=== PATIENT | male | born 1940 | race Caucasian/White ===

== ENCOUNTER 2018-04-24 07:20 | Day surgery (SDC) | payer MEDICARE, OTHER ==
[2018-04-24] MEDS ORDERED: BUPIVACAINE 0.5% PF 30 ML VIAL ONE (07:48)
[2018-04-24] MEDS ORDERED: LACTATED RINGERS 1,000 ML IV ONE ×4 (08:07→12:41)
--- NOTE | 2018-04-24 08:31 | ANESTHESIA ---
Pre-Anesthesia VS, & Labs - Diagnosis Right IHR - Procedure R IHR Vital Signs: Temp Pulse Resp BP Pulse Ox 36.3 C L 16 154/84 H 100 04/24/18 07:53 04/24/18 07:53 04/24/18 07:53 04/24/18 07:53 Height 5 ft 9 in Weight (kg) 66.5 kg - NPO >8 hours - Lab Results Lab results reviewed: Yes Home Medications and Allergies Home Medications: Ambulatory Orders Medication Instructions Recorded Confirmed No Known Home Medications [No 04/18/18 04/18/18 Known Home Medications] Allergies/Adverse Reactions: Allergies Allergy/AdvReac Type Severity Reaction Status Date / Time No Known Drug Allergies Allergy Verified 04/18/18 11:27 Anes History & Medical History - Anesthetic History Anesthesia Complications: reports: No previous complications - Medical History Cardiovascular: reports: Other (Bradycardia 29) Pulmonary: reports: None. denies: Asthma Gastrointestinal: reports: None, Other Urinary: reports: None Neuro: reports: None Musculoskeletal: reports: None Endocrine/Autoimmune: reports: None Blood Disorders: reports: None Skin: reports: None Smoking Status: Never smoker Psychosocial: reports: No issues indicated - Surgical History Eyes Ears Nose Throat (EENT): Tonsil/Adenoidectomy Exam General: Alert, Oriented x3, Cooperative Dental: WNL Mouth Openin Fingerbreadth Neck Mobility: Normal Mallampati classification: I Thyromental Distance: 4-6 cm Respiratory: Lungs clear Cardiovascular: Regular rate Abdomen: Normal bowel sounds Extremities: No clubbing Neurological: Normal gait Mental/Cognitive Status: Alert/Oriented X3 Cognitive Status: Within normal limits Plan Anesthesia Type: General Consent for Procedure(s) Verified and Reviewed: Yes Code Status: Attempt Resuscitation ASA classification: 2-Mild systemic disease Is this case an emergency?: No
[2018-04-24] MEDS ORDERED: PROPOFOL 200 MG/20 ML VIAL IVP ONE (09:00)
[2018-04-24] MEDS ORDERED: GLYCOPYRROLATE 1 MG/5 ML VIAL IVP ONE (09:00)
[2018-04-24] MEDS ORDERED: LIDOCAINE-MPF 2% 5 ML VIAL IM ONE (09:00)
[2018-04-24] MEDS ORDERED: fentaNYL 100 MCG/2 ML VIAL IVP ONE (09:00)
[2018-04-24] MEDS ORDERED: ONDANSETRON 4 MG/2 ML VIAL IVP ONE (09:00)
[2018-04-24] MEDS ORDERED: DEXAMETHASONE 4 MG/ML VIAL IVP ONE (09:00)
[2018-04-24] MEDS ORDERED: MIDAZOLAM 2 MG/2 ML VIAL IVP ONE (09:00)
[2018-04-24] MEDS ORDERED: BUPIVACAINE 0.5% PF 30 ML VIAL INFIL ONE ×2 (09:19)
--- NOTE | 2018-04-24 10:21 | OPERATIVE REPORT ---
Operative Report - General Procedure Date: 04/24/18 Planned Procedure: Right inguinal herniorrhaphy Pre-Op Diagnosis: Right inguinal hernia Procedure Performed: Right indirect inguinal herniorrhaphy with mesh and right hydrocelectomy Post Op Diagnosis: Right indirect inguinal hernia and right hydrocele - Procedure Note Primary Surgeon: Zackary Burrows MD Anesthesia Provider: Ricardo Jordan CRNA Anesthesia Technique: General LMA, Local (30 mL of half percent Marcaine) IV Fluids (mL): 1,000 Estimated Blood Loss (mL): 5 Complications: None. - Other Other Information/Narrative: OPERATIVE DESCRIPTION/REPORT: After verbal and written informed consent was obtained detailing the risks of infection, bleeding requiring transfusion with its risks, nerve injury, and , and after I met with the patient confirming the surgery and the site of the surgery and after initialing the site of the surgery with a surgical marker , the patient was brought to the operative suite and placed supine on the operating table. Great care was taken to avoid pressure points to prevent pressure necrosis or nerve injury. Monitoring devices were applied along with TEDs and pneumatic compressive stockings (to prevent DVT). The patient received preoperative antibiotics for surgical prophylaxis. Ricardo Jordan CRNA sedated and anesthetized the patient for the entire procedure. The patient was prepped and draped in the usual sterile manner. With the patient draped my initials were clearly visible. A "time in" then confirmed that the patient was identified with 3 identifiers (name, date and medical record number), the history and physical was in the chart, the signed consent confirming the procedure was in the chart, the patient was in the correct position, the aforementioned prophylactic measures were in place or given, we had the correct personnel and equipment to complete the procedure and that anesthesia, surgery and nursing were given an opportunity to express any concerns. With the agreement of everyone in the room, we proceeded with the operation. A standard inguinal incision was made and dissection was carried down to the external oblique aponeurosis using a combination of Metzenbaum scissors and Bovie electrocautery. The external oblique aponeurosis was cleared of overlying adherent tissue, and the external ring was delineated. The external oblique was the incised with a scalpel and this incision was carried out to the external ring using Metzenbaum scissors. Having exposed the inguinal canal, the cord structures were from the canal using blunt dissection, and a [place] drain was placed around the cord structures at the level of the pubic tubercle. This Guy drain was then used to retract the cord structures as needed. Adherent cremasteric muscle was dissected free from the cord using Bovie electrocautery. The cord was then explored using a combination of sharp and blunt dissection, and the sac was found anteromedially to the cord structures. The sac was quite large and scarred to the cord contents. The sac descended down into the right testicle. As the right testicle was brought up into the operative field and a small hydrocele is noted. This was drained and the sac was excised using serial application of Bovie electrocautery. The sac was dissected free from the cord structures using a combination of blunt dissection and Bovie electrocautery. Once preperitoneal fat was encountered, the dissection stopped and the sac was high ligated with a 2-0 Vicryl, transected, the stump cauterized and allowed to retract back into the abdominal cavity and a large Bard Perfix plug (Ref# [id number], Lot#[id number], use date 2022-11-15) inserted into the internal ring. The plug was secured to the internal ring by interrupted 2-0 PDS sutures. The Bard Perfix enlay patch was then placed on the floor of the inguinal canal and secured in place using interrupted 0 PDS sutures to the conjoined tendon superiorly, pubic tubercle medially, and shelving edge inferiorly. By reinforcing the floor with the enlay patch, a new internal ring was thus formed. The [place] drain was removed. The wound was then irrigated using sterile saline, and hemostasis was obtained using Bovie electrocautery. The incision in the external oblique was approximated using a 3-0 Vicryl in a running fashion , thus reforming the external ring. The fascia and skin was then injected with the 1/2% marcaine for skilled nursing pain control. The skin incision was approximated with 4-0 Monocryl in a subcuticular fashion. The skin was prepped with benzoin and steristrips were applied. At this point a time out was performed that confirmed that all the counts were correct, the procedure that was performed, the blood loss, the IV fluids administered, and the patients condition. A dressing was then applied. Gentle downward traction ensured that the testes were well seated in the scrotum. Having tolerated the procedure well , the patient was taken to short stay in good and stable condition.
[2018-04-24 12:51] VITALS: BP 133/78
== END 2018-04-24 07:21 | disposition home or self-care (01) ==
LOC: SDS 07:20
PROVIDERS: ATTEND Surgery
PROC: 0VBF0ZZ Excision of Right Spermatic Cord, Open Approach (ICD-10-PCS; 2018-04-24)
PROC: 0YU50JZ Supplement Right Inguinal Region with Synthetic Substitute, Open Approach (ICD-10-PCS; principal; 2018-04-24 08:30)
DX: K40.90 Unilateral inguinal hernia, without obstruction or gangrene, not specified as recurrent (principal); R00.1 Bradycardia, unspecified; Z86.19 Personal history of other infectious and parasitic diseases
CPT/HCPCS: 49505; 93005; C1781; J7120

== ENCOUNTER 2024-02-04 15:37 | Observation (INO) | payer MEDICARE, OTHER ==
--- NOTE | 2024-02-04 16:14 | ED Physician Documentation ---
PD HPI CHEST PAIN - Stated complaint Stated Complaint: CHEST TIGHTNESS - Chief complaint Chief Complaint: Cardiac - Additional information Additional information: 83-year-old male no past medical history does not take any medications for anyt charity presents emergency department for what he describes as an episode of chest tightness that occurred in the middle the night. Since then he feels better his symptoms have improved but he says that he does get these occasional chest tightness symptoms. No recent exertional exercise no recent illnesses. Patient does report that he has chronic lightheadedness that has been going on for years that is still present. PD PAST MEDICAL HISTORY - Past Medical History Past Medical History: No Cardiovascular: Other Respiratory: None Neuro: None Endocrine/Autoimmune: None GI: None, Other : None Musculoskeletal: None Derm: None - Past Surgical History Past Surgical History: Yes HEENT: Tonsil/Adenoidectomy - Present Medications Home Medications: Ambulatory Orders Medication Instructions Recorded Confirmed No Known Home Medications 04/18/18 02/04/24 - Allergies Allergies/Adverse Reactions: Allergies Allergy/AdvReac Type Severity Reaction Status Date / Time No Known Drug Allergies Allergy Verified 02/04/24 16:01 - Social History Does the pt smoke?: No Smoking Status: Never smoker Does the pt drink ETOH?: No Does the pt have substance abuse?: No - Immunizations Immunizations are current?: Yes - POLST Patient has POLST: No PD ED PE NORMAL - Vitals Vital signs reviewed: Yes - General General: Alert and oriented X 3, No acute distress, Well developed/nourished - HEENT HEENT: Atraumatic - Neck Neck: Supple, no meningeal sign - Cardiac Cardiac: No murmur, Other (Irregularly irregular) - Respiratory Respiratory: No respiratory distress, Clear bilaterally - Abdomen Abdomen: Normal bowel sounds, Soft, Non tender, No organomegaly - Back Back: No CVA TTP, No spinal TTP - Derm Derm: Normal color, Warm and dry, No rash - Extremities Extremities: No deformity, No edema, No calf tenderness / cord - Neuro Neuro: Alert and oriented X 3, regulatory technician 2-12 intact, No motor deficit, No sensory deficit, Normal speech Results - Vitals Vitals: Vital Signs - 24 hr 02/04/24 02/04/24 02/04/24 15:57 16:12 17:30 Temperature 36.0 C L Heart Rate 60 112 H 102 H Respiratory 20 22 Rate Blood Pressure 125/102 H 138/112 H 109/92 H O2 Saturation 99 98 02/04/24 02/04/24 02/04/24 17:40 17:45 17:50 Temperature Heart Rate 103 H 96 90 Respiratory Rate Blood Pressure 133/96 H 123/91 H 125/89 H O2 Saturation 02/04/24 02/04/24 02/04/24 18:00 18:15 18:30 Temperature Heart Rate 90 91 93 Respiratory Rate Blood Pressure 125/89 H 128/104 H 106/54 L O2 Saturation 02/04/24 02/04/24 02/04/24 18:45 18:55 19:00 Temperature Heart Rate 96 99 94 Respiratory Rate Blood Pressure 124/92 H 129/111 H 117/88 H O2 Saturation 02/04/24 02/04/24 02/04/24 19:05 19:15 19:20 Temperature Heart Rate 94 92 91 Respiratory 17 Rate Blood Pressure 130/96 H 112/87 H 124/109 H O2 Saturation 97 02/04/24 02/04/24 02/04/24 19:25 19:35 19:45 Temperature Heart Rate 95 92 98 Respiratory 18 14 25 H Rate Blood Pressure 126/98 H 114/92 H 115/91 H O2 Saturation 98 95 99 02/04/24 02/04/24 02/04/24 20:30 20:40 20:45 Temperature Heart Rate 99 81 95 Respiratory 19 Rate Blood Pressure 109/88 H 114/94 H O2 Saturation 98 02/04/24 02/04/24 02/04/24 20:50 21:00 21:05 Temperature Heart Rate 95 93 90 Respiratory 18 18 Rate Blood Pressure 129/80 114/99 H 111/96 H O2 Saturation 99 98 02/04/24 02/04/24 02/04/24 21:25 21:30 21:45 Temperature Heart Rate 86 81 82 Respiratory 19 19 Rate Blood Pressure 116/92 H 108/88 H 125/84 H O2 Saturation 97 99 02/04/24 02/04/24 02/04/24 22:00 22:30 23:00 Temperature Heart Rate 86 85 83 Respiratory 20 20 Rate Blood Pressure 112/75 113/71 O2 Saturation 99 98 Oxygen O2 Source Room air - EKG (time done) 1556 EKG releavant findings:: EKG personally interpreted by author of this note. Relevant findings are: Rate: Rate (enter#) (108) Rhythm: Atrial fibrillation [place]: LAD QRS: Normal Ischemia: Normal ST segments Computer interpretation: Agree with computer - Labs Labs: Laboratory Tests 02/04/24 02/04/24 02/04/24 16:10 16:10 16:10 WBC 6.9 RBC 4.08 L Hgb 13.9 L Hct 42.0 MCV 102.9 H MCH 34.1 H MCHC 33.1 RDW 12.9 Plt Count 166 MPV 8.8 Neut # (Auto) 4.9 Lymph # (Auto) 1.0 L [place] # (Auto) 1.0 Eos # (Auto) 0.0 Baso # (Auto) 0.0 Absolute Nucleated RBC 0.00 Nucleated RBC % 0.0 PT INR D-Dimer Sodium 139 Potassium 4.0 Chloride 104 Carbon Dioxide 29 Anion Gap 6.0 BUN 19 Creatinine 0.9 Estimated GFR (MDRD) 80 L Glucose 131 H Calcium 9.4 Total Bilirubin 1.2 H AST 22 ALT 22 Alkaline Phosphatase 40 L Troponin I High Sens 7.4 Total Protein 6.6 Albumin 4.2 Globulin 2.4 Albumin/Globulin Ratio 1.8 Lipase 21 TSH 3.09 02/04/24 16:10 WBC RBC Hgb Hct MCV MCH MCHC RDW Plt Count MPV Neut # (Auto) Lymph # (Auto) [place] # (Auto) Eos # (Auto) Baso # (Auto) Absolute Nucleated RBC Nucleated RBC % PT 13.4 H INR 1.2 D-Dimer 419.8 H Sodium Potassium Chloride Carbon Dioxide Anion Gap BUN Creatinine Estimated GFR (MDRD) Glucose Calcium Total Bilirubin AST ALT Alkaline Phosphatase Troponin I High Sens Total Protein Albumin Globulin Albumin/Globulin Ratio Lipase TSH - Rads (name of study) Chest x-ray Relevant Findings:: Final report received, EMP independent interpretation of test, Other (No acute cardiopulmonary abnormalities) CT PE Relevant Findings:: Final report received, EMP independent interpretation of test, Other (No pulmonary embolus, bibasilar atelectasis no cardiopulmonary abnormalities) PD Medical Decision Making - ED course ED course: 83-year-old male presents emergency department for chest tightness. EKG upon arrival reveals that he is in new onset A-fib. Patient says that he has never been diagnosed with A-fib before he is unsure if he had any EKGs within the last couple years but says that he has been struggling with dizziness now for years and unsure if this is been because of A-fib or not. Originally we talked about possibly doing a cardioversion for the patient but he cannot confidently say that the chest tightness that he was experiencing last night was the onset of the A-fib and so I do not believe that cardioversion is the safest option for the patient. Labs are complete for further evaluation no leukocytosis minimally suppressed hemoglobin at 13.9. PT is 13.4 INR is within normal limits at 1.2 D- dimer was elevated at 4.19. Electrolytes were within normal limits as well as normal TSH. Normal kidney function as well. We attempted to try and get his heart rate controlled with 5 mg of IV metoprolol x 3 which unfortunately did not improve his heart rate so we went ahead and started him on diltiazem drip which significantly improved his heart rate. He remains in A-fib. I believe that patient would benefit from hospitalization for rate control given his improvement on the diltiazem drip and possible expedited echocardiogram tomorrow while inpatient. I spoke with hospitalist Dr. Foster who is graciously agreed to admit the patient for hospitalization and further workup for patient's new onset A-fib. Departure - Departure Disposition: 66 [facility] DC/[facility] Clinical Impression: New onset a-fib
[2024-02-04 16:16] LABS: BASOPHILS % (AUTO) 0.3 %; EOSINOPHILS % (AUTO) 0.1 %; HGB - HEMOGLOBIN 13.9 g/dL (14.0-18.0); LYMPHOCYTES % (AUTO) 14.6 %; MEAN CORPUSCULAR HEMOGLOBIN 34.1 pg (27.0-31.0); MEAN CORPUSCULAR HGB CONC 33.1 g/dL (32.0-36.0); MEAN CORPUSCULAR VOLUME 102.9 fL (80.0-94.0); MEAN PLATELET VOLUME 8.8 fL (7.4-11.4); MONOCYTES % (AUTO) 14.9 %; NEUTROPHILS # (AUTO) 4.9 10^3/uL (1.5-6.6); NEUTROPHILS % (AUTO) 70.1 %; PLT - PLATELET COUNT 166 10^3/uL (130-450); RED BLOOD COUNT 4.08 10^6/uL (4.70-6.10); RED CELL DISTRIBUTION WIDTH 12.9 % (12.0-15.0); WHITE BLOOD COUNT 6.9 x10^3/uL (4.8-10.8)
--- NOTE | 2024-02-04 16:35 | XRAY Report ---
PROCEDURE: Chest 1V INDICATIONS: Chest pain TECHNIQUE: One view of the chest was acquired. COMPARISON: Correlation is made with report only from prior chest radiograph dated 08/17/2010 FINDINGS: Surgical changes and devices: None. Lungs and pleura: An incomplete inspiratory result is noted, with low lung volumes and crowding of t he vascular markings. No focal infiltrates are seen. No large pneumothorax or large pleural effusion can be seen. Mediastinum: Mediastinal contours appear normal. Heart size is normal. Calcification is seen of th e aortic arch. Bones and chest wall: No suspicious bony lesions. Age-appropriate degenerative changes are seen. O verlying soft tissues appear unremarkable. IMPRESSION: Limited portable chest examination, without an acute abnormality identified. Reviewed by: Steve Hyatt MD on 02/04/2024 3:34 PM AKAMOL Approved by: Steve Hyatt MD on 02/04/2024 3:34 PM [place]AR[place] Station ID: [id number]
[2024-02-04 16:38] LABS: TROPONIN I HIGH SENSITIVITY 7.4 ng/L (2.3-19.7)
[2024-02-04 17:07] LABS: ALBUMIN 4.2 g/dL (3.2-5.5); ALBUMIN/GLOBULIN RATIO 1.8 (1.0-2.2); BILIRUBIN,TOTAL 1.2 mg/dL (0.2-1.0); CALCIUM 9.4 mg/dL (8.5-10.3); CREATININE 0.9 mg/dL (0.6-1.3); TOTAL PROTEIN 6.6 g/dL (6.4-8.9)
[2024-02-04] MEDS: METOPROLOL 5 MG/5 ML VIAL IVP STA ×4 (17:33→19:49)
[2024-02-04 17:34] LABS: D-DIMER 419.8 ng/mL (200.0-255.0)
[2024-02-04] MEDS: SODIUM CHLORIDE 0.9% 1,000 ML IV ONE (17:34)
[2024-02-04 17:39] LABS: INR 1.2 (0.8-1.2); PT - PROTHROMBIN TIME 13.4 secs (9.9-12.6)
[2024-02-04] MEDS ORDERED: diltiaZEM INJ 5 MG/ML VIAL ONE (20:24)
[2024-02-04] MEDS: diltiaZEM INJ 125 MG in DEXTROSE 5% 100 ML IV STA (20:32)
[2024-02-04] MEDS ORDERED: iohexoL-300 100 ML VIAL ONE (21:29)
[2024-02-04] MEDS: iohexoL-300 100 ML VIAL IVP ONE (22:15)
--- NOTE | 2024-02-04 22:49 | CT Report ---
PROCEDURE: Angio Chest INDICATIONS: CT angio chest CONTRAST: 100 ML OMNI 300 TECHNIQUE: After the administration of intravenous contrast, 2 mm axial images were acquired from the pulmonary apices to the posterior costophrenic angles during the arterial phase. In addition, 1 mm lung kernel and 5 mm soft tissue kernel reconstructions were performed. 3-dimensional coronal oblique maximum int ensity projection (MIP) reformats, 8 mm axial MIP, and 5 mm coronal and sagittal MPR reformats were t hen performed through the thorax. For radiation dose reduction, the following was used: automated exp osure control, adjustment of mA and/or kV according to patient size. COMPARISON: Chest radiograph from earlier same day. FINDINGS: Image quality: Diagnostic. Large vessels: No filling defects within the opacified pulmonary arteries, accounting for motion and contrast timing. No evidence of acute aortic syndrome or aortic aneurysm. Lungs and pleura: Bibasilar atelectasis. No consolidation. No pleural effusions. No pneumothorax. No suspicious pulmonary nodules which require follow up. Mediastinum: Heart size is normal. No pericardial effusion. No large vessel abnormality. No mediastin al adenopathy by size criteria. Chest wall and lower neck: Thyroid is unremarkable. No axillary or supraclavicular adenopathy by size . Bones: No aggressive osseous abnormality. Multilevel spondylosis of the imaged spine. No acute compre ssion fracture. Upper Abdomen: Unremarkable. IMPRESSION: No pulmonary embolus. Bibasilar atelectasis. No acute cardiopulmonary abnormalities. Reviewed by: Anthony Polanco MD on 02/04/2024 10:47 PM PDT Approved by: Anthony Polanco MD on 02/04/2024 10:47 PM PDT Station ID: [id number]
[2024-02-04] MEDS ORDERED: SODIUM CHLORIDE FLUSH 0.9% 10 ML SYRINGE IVP PRN (23:17)
[2024-02-04] MEDS ORDERED: ACETAMINOPHEN 325 MG TABLET PO PRN (23:17)
[2024-02-04] MEDS ORDERED: ONDANSETRON 4 MG/2 ML VIAL IVP PRN (23:17)
--- NOTE | 2024-02-04 23:29 | HISTORY & PHYSICAL EXAMINATION ---
Chief Complaint - Chief Complaint Chief Complaint: chest tightness History of Present Illness - Admitted From Admitted From:: Home - History Obtained From Records Reviewed: Yes History obtained from: Patient, ER staff and review of records Exam Limitations: None - History of Present Illness HPI Comment/Other: 83-year-old male no past medical history does not take any medications for anything presents emergency department for what he describes as an episode of chest tightness that occurred in the middle the night. Since then he feels better his symptoms have improved but he says that he does get these occasional chest tightness symptoms. No recent exertional exercise no recent illnesses. Patient does report that he has chronic lightheadedness that has been going on for years that is still present. Patient has had hx of right inguinal hernia repair in 2018, hax hx of hepatitis and bowel disorder. He states he is healthy for his age. I informed him prior to our visit that I am based in [place] and this is a telem edicine visit and he gives permission to continue with the encounter. Patient is CP free at this time, heart rate is improved, based on his history his A fib is new onset, he has not felt this palpitations in past. 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 Lately he has had episodes of feeling tired and fatigue, which he attributed to old age, could likely be from paroxysmal a fib He has no chest pain at this time only episode of cp was last night when he e xperienced his heart racing and palpitations.I have discussed with him that we will be starting him on amiodarone to maximize his chance of going back to sinus rhythm as well as start him on blood thinners, he has had no hx of bleeding. Also we will check an echocardiogram in am History - Past Medical History Cardiovascular: reports: Other Respiratory: reports: None Neuro: reports: None Endocrine/Autoimmune: reports: None GI: reports: None, Hepatitis, Other : reports: None, Other (right inguinal hernia repair ) Musculoskeletal: reports: None Derm: reports: None MRSA Hx?: No - Past Surgical History HEENT: reports: Tonsil/Adenoidectomy - POLST Patient has POLST: No Meds/Allgy - Home Medications Home Medications: Ambulatory Orders Medication Instructions Recorded Confirmed No Known Home Medications 04/18/18 02/04/24 - Allergies Allergies/Adverse Reactions: Allergies Allergy/AdvReac Type Severity Reaction Status Date / Time No Known Drug Allergies Allergy Verified 02/04/24 16:01 Review of Systems - Cardiovascular Cariovascular: reports: Irregular heart rate, Palpitations, Chest pain Exam - Vital Signs Vital Signs: Vital Signs x48h Temp Pulse Resp BP Pulse Ox 02/04/24 22:30 85 20 112/75 99 02/04/24 22:00 86 02/04/24 21:45 82 19 125/84 H 99 02/04/24 21:30 81 108/88 H 02/04/24 21:25 86 19 116/92 H 97 02/04/24 21:05 90 111/96 H 02/04/24 21:00 93 18 114/99 H 98 02/04/24 20:50 95 18 129/80 99 02/04/24 20:45 95 114/94 H 02/04/24 20:40 81 19 109/88 H 98 02/04/24 20:30 99 02/04/24 19:45 98 25 H 115/91 H 99 02/04/24 19:35 92 14 114/92 H 95 02/04/24 19:25 95 18 126/98 H 98 02/04/24 19:20 91 124/109 H 02/04/24 19:15 92 17 112/87 H 97 02/04/24 19:05 94 130/96 H 02/04/24 19:00 94 117/88 H 02/04/24 18:55 99 129/111 H 02/04/24 18:45 96 124/92 H 02/04/24 18:30 93 106/54 L 02/04/24 18:15 91 128/104 H 02/04/24 18:00 90 125/89 H 02/04/24 17:50 90 125/89 H 02/04/24 17:45 96 123/91 H 02/04/24 17:40 103 H 133/96 H 02/04/24 17:30 102 H 109/92 H 02/04/24 16:12 112 H 22 138/112 H 98 02/04/24 15:57 36.0 C L 60 20 125/102 H 99 - Physical Exam General Appearance: positive: No acute distress Eyes Bilateral: positive: Normal inspection ENT: positive: Pharynx nml, No signs of dehydration Neck: positive: Nml inspection Cardiovascular: positive: Irregularly irregular Abdomen: positive: Non-tender, No organomegaly, Nml bowel sounds Back: positive: Nml inspection, CVA tenderness (R) Skin: positive: Color nml Extremities: positive: Non-tender, Full ROM Neurologic/Psychiatric: positive: Oriented x3, CN's nml (2-12) Sepsis Event Note (H) - Evaluation Current Stage of Sepsis: Ruled out Conclusion/Plan - Problem List (1) New onset a-fib Conclusion/Plan: 1. New on set of A fib with RVR 2. Chest tightness 3.Hx of right inguinal hernia repair 4. Mild abnormal LFT Recommendations Admit to icu Gentle hydration Start on Eliquis 5 mg bid Metoprolol 25 mg po bid Check Echo Amiodarone drip I am anticipating likely patient will convert to SR once he gets amiodarone Full code TOTAL TIME SPENT 55 MINS - Lab Results Fish Bones: 02/04/24 16:10 02/04/24 16:10 - Diagnostic Imaging Results Diagnostic Imaging Results: positive: Final report reviewed - EKG Results EKG Interpreted Independently: No EKG Findings: EKG not available for review to me, ER staff states they have reviewed the EKG and shows A fib
[2024-02-05] MEDS ORDERED: AMIODARONE 150 MG/100 ML 100 ML IV ONE (00:39)
[2024-02-05] MEDS: AMIODARONE 150 MG/3 ML VIAL IVP STA (00:48)
[2024-02-05] MEDS: SODIUM CHLORIDE 0.9% 1,000 ML IV SCH (00:49)
[2024-02-05] MEDS: SODIUM CHLORIDE FLUSH 0.9% 10 ML SYRINGE IVP SCH (00:49)
[2024-02-05] MEDS: METOPROLOL TARTRATE 50 MG TABLET PO SCH (00:56)
[2024-02-05] MEDS: APIXABAN 5 MG TABLET PO SCH (00:56)
[2024-02-05] MEDS: AMIODARONE 360 MG/200 ML 200 ML IV ONE (01:03)
[2024-02-05 05:31] LABS: BASOPHILS % (AUTO) 0.5 %; EOSINOPHILS # (AUTO) 0.1 10^3/uL (0.0-0.7); EOSINOPHILS % (AUTO) 1.3 %; HCT - HEMATOCRIT 38.1 % (42.0-52.0); HGB - HEMOGLOBIN 12.5 g/dL (14.0-18.0); LYMPHOCYTES % (AUTO) 32.4 %; MEAN CORPUSCULAR HEMOGLOBIN 33.5 pg (27.0-31.0); MEAN CORPUSCULAR HGB CONC 32.8 g/dL (32.0-36.0); MEAN CORPUSCULAR VOLUME 102.1 fL (80.0-94.0); MEAN PLATELET VOLUME 9.6 fL (7.4-11.4); MONOCYTES # (AUTO) 0.9 10^3/uL (0.0-1.0); MONOCYTES % (AUTO) 15.4 %; NEUTROPHILS # (AUTO) 3.1 10^3/uL (1.5-6.6); NEUTROPHILS % (AUTO) 50.2 %; PLT - PLATELET COUNT 162 10^3/uL (130-450); RED BLOOD COUNT 3.73 10^6/uL (4.70-6.10); WHITE BLOOD COUNT 6.1 x10^3/uL (4.8-10.8)
[2024-02-05 05:39] LABS: MAGNESIUM 1.8 mg/dL (1.7-2.3)
[2024-02-05 05:44] LABS: ALBUMIN 3.6 g/dL (3.2-5.5); ALBUMIN/GLOBULIN RATIO 1.6 (1.0-2.2); BILIRUBIN,TOTAL 1.2 mg/dL (0.2-1.0); CALCIUM 8.9 mg/dL (8.5-10.3); CREATININE 0.8 mg/dL (0.6-1.3); POTASSIUM 4.1 mmol/L (3.5-4.5); TOTAL PROTEIN 5.8 g/dL (6.4-8.9)
[2024-02-05] MEDS: AMIODARONE 360 MG/200 ML 200 ML IV SCH (07:07)
[2024-02-05] MEDS: AMIODARONE 200 MG TABLET PO SCH (10:59)
--- NOTE | 2024-02-05 12:41 | PHARMACY PROGRESS NOTE ---
- Best Possible Medication History Admit Date and Time: 02/04/24 2424 Processed by: Pharmacy Medications reviewed in ED?: Yes Medication History completed: Yes Patient Interview: Completed Secondary Source(s): Insurance records As the person ultimately responsible for medication therapy, providers are able to order a medication from an existing home medication list in [facility] via the "Reconcile Routine" prior to Confirmation of that medication by support architect. Such practice is discouraged except when the physician, in their clinical judgment, deems that a medical need exists for a medication without regard to previous use.
--- NOTE | 2024-02-05 14:37 | Discharge Plan ---
Discharge Plan Problem Reviewed?: Yes Disposition: Home, Self Care Condition: Stable Prescriptions: Apixaban [Eliquis] 5 mg PO BID 90 Days #180 tab Metoprolol Tartrate [Lopressor] 25 mg PO BID #90 tab Diet: Regular Activity Restrictions: Activity as Tolerated Shower Restrictions: No Driving Restrictions: Yes (Please try to minimize driving until you're able to follow up with a Dr ) Instruction Topics: Atrial Fibrillation Dc Additional Instructions or Follow Up instructions: Zackary, as we discussed, when you came to the hospital you had an irregular heart rhythm called atrial fibrillation. At the time that I discharged you, your heart was still in atrial fibrillation. As we discussed, this can be something that you can live with, and live a relatively happy and healthy life, however it can also come with some potential complications. The 2 most important ones are the increased risk of stroke associated with atrial fibrillation. The second 1 would be when atrial fibrillation leads to a very fast heart rate which is not sustainable. For this reason, I am starting you on 2 different medications 1 called metoprolol which will help reduce your heart rate and also affect your blood pressure. The other 1 is called Eliquis, which is a blood thinner that will help reduce your chances of the stroke. As we discussed, one of my concerns, is that we need to monitor your heart rate and blood pressure after starting a new medication like metoprolol. Because if your heart rate gets too high or too low it can cause problems for you. It can also lower your blood pressure, and if your blood pressure is low or too much, that can cause lightheadedness or weakness. In order to avoid these complications, I would like you to follow-up with a primary care physician or other healthcare provider, establish care with a mine engineer if possible. In the meantime, please use your home blood pressure monitor to check your blood pressure and heart rate daily. To make sure your blood pressure is in a safe range, I would like the systolic, or the top number, to fall somewhere between 100-170. I would like your heart rate to be somewhere between 55 and 100. If you find that your numbers are consistently out of this range, you may need to get medical advice from an urgent care or some other provider until you can be established with a PCP. On the other hand, if you start to feel unwell, please do not wait and seek medical attention more immediately. Regarding the blood thinner, called Eliquis, this is a generally safe medication that is well-tolerated. However, please do keep in mind that we will increase the chances of bleeding episodes. For example, you may find bloody noses more often than usual or it may take longer to stop a bloody nose than it used to. Simple abrasions from a fall or paper cut may also bleed for longer than usual. But it should still be relatively manageable by holding pressure for a little longer. It can also be associated with what is called a GI bleed, which means bleeding from the gastrointestinal tract. If you notice that you have dark- colored stool or red, maroon or iron colored stool, please seek medical advice. Lastly, remember that an echocardiogram was performed while you were here in the hospital. Unfortunately, at the time of your discharge, I do not have access to a report or interpretation. However, when she establish with a PCP, have their office request medical records from this hospital admission and our medical records office should be able to send them to your new PCP for review. No Smoking: If you smoke, Please STOP! Call for help.
--- NOTE | 2024-02-05 14:54 | DISCHARGE SUMMARY ---
Discharge Summary Admit Date: 02/04/24 Discharge Date: 02/05/24 Discharging Provider: Ismael Sarah MD Primary Care Provider: None Code Status: Attempt Resuscitation Condition at Discharge: Stable Discharge Disposition: 01 Home, Self Care - DIAGNOSES Admission Diagnoses: Atrial Fibrillation - New Onset Discharge Diagnoses with Status of Each Condition: Atrial Fibrillation - Stable - HPI History of Present Illness: 83-year-old male no past medical history does not take any medications for anything presents emergency department for what he describes as an episode of chest tightness that occurred in the middle the night. Since then he feels better his symptoms have improved but he says that he does get these occasional chest tightness symptoms. No recent exertional exercise no recent illnesses. Patient does report that he has chronic lightheadedness that has been going on for years that is still present. Patient has had hx of right inguinal hernia repair in 2018, hax hx of hepatitis and bowel disorder. He states he is healthy for his age. I informed him prior to our visit that I am based in [place] and this is a telemedicine visit and he gives permission to continue with the encounter. Patient is CP free at this time, heart rate is improved, based on his history his A fib is new onset, he has not felt this palpitations in past. 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 Lately he has had episodes of feeling tired and fatigue, which he attributed to old age, could likely be from paroxysmal a fib He has no chest pain at this time only episode of cp was last night when he experienced his heart racing and palpitations.I have discussed with him that we will be starting him on amiodarone to maximize his chance of going back to sinus rhythm as well as start him on blood thinners, he has had no hx of bleeding. Also we will check an echocardiogram in am - HOSPITAL COURSE Hospital Course: Ismael Sarah MD patient was admitted through the emergency department due to brief period of chest pain prior to arrival followed by atrial fibrillation. Heart rates were over 100, and patient was given metoprolol IV, diltiazem gtt., and cardioversion was offered however eventually rate control was achieved and he was started on amiodarone gtt. and admitted to the ICU. Per patient, he states that other than the brief episode of chest pain that resolved prior to admission he Has felt fine all night and into the morning and was extremely eager to go home.He states he is able to exercise with walking and stretching daily and never has any problems. I spent an extensive amount of time with the patient educating him on atrial fibrillation, including the nature of A-fib but also the importance of rate control and stroke prevention and the patient voiced understanding and was agreeable to starting medications. I explained to the patient that to some extent starting him on p.o. metoprolol on discharge will require some trial and error as it is difficult to predict exactly how this will affect his heart rate and blood pressure and therefore I want him to start ambulatory blood pressure monitoring, heart rate monitoring, and follow-up with the PCP as soon as possible. Eventually he may need a dress cutter as well to discuss options for possible outpatient cardioversion or other procedures. Of note, after being on amiodarone gtt. overnight, then receiving metoprolol 25 mg p.o. x 1, his blood pressure in the morning was sustaining in the low 100s systolic and 80s diastolic. His heart rate was in the 80s to 90s range. He did receive 1 dose of amiodarone 200 mg p.o. following the discontinuation of the gtt. which did not seem to have a significant impact on his heart rate or blood pressure. Based on his adequate rate control with metoprolol, I opted not to start amiodarone p.o. at home for fear of resulting in symptomatic bradycardia. Educated patient on the importance of heart rate and blood pressure monitoring and encouraged to follow-up soon as possible. - ALLERGIES Allergies/Adverse Reactions: Allergies Allergy/AdvReac Type Severity Reaction Status Date / Time No Known Drug Allergies Allergy Verified 02/04/24 16:01 - MEDICATIONS Home Medications: Ambulatory Orders Medication Instructions Recorded Confirmed Apixaban [Eliquis] 5 mg PO BID 90 Days #180 tab 02/05/24 Metoprolol Tartrate [Lopressor] 25 mg PO BID #90 tab 02/05/24 Timolol 0.5% Ophth Drops [Timoptic 1 drops EACHEYE DAILY 02/05/24 02/05/24 0.5% Ophth Drops] - PHYSICAL EXAM AT DISCHARGE General Appearance: positive: No acute distress Eyes Bilateral: positive: Normal inspection Neck: positive: Nml inspection Respiratory: positive: Chest non-tender, No respiratory distress, Breath sounds nml Cardiovascular: positive: No murmur, No gallop, Irregularly irregular. negative: Tachycardia Abdomen: positive: Non-tender, No organomegaly, Nml bowel sounds Extremities: positive: No pedal edema Neurologic/Psychiatric: positive: Oriented x3, CN's nml (2-12), Motor nml - LABS Result Diagrams: 02/05/24 05:06 02/05/24 05:06 - DIAGNOSTIC IMAGING Diagnostic Imaging Results: Final report reviewed - SEPSIS Current Stage of Sepsis: Ruled out - TIME SPENT Time Spent in Discharge (Minutes): 65
[2024-02-05 15:13] VITALS: BP 113/76; O2SAT 100
[2024-02-05] MEDS ORDERED: METOPROLOL TARTRATE 25 MG TABLET PO SCH (21:00)
== END 2024-02-05 15:22 | disposition home or self-care (01) ==
LOC: ED 15:37 → OBS 23:17 → UNDOADMOB 23:17 → MS2 23:17 → INTOOBSV 23:58 → OBSVTOIN 23:58 → ICU 02-05 00:02 → MS2 02-05 00:02 → ICU 02-05 00:02 → OBS 02-05 00:02 → ICU 02-05 13:00 → UNDODISOB 02-05 15:22
PROVIDERS: ADMIT Internal Medicine; ATTEND Family Medicine Sports Medicine
DX: I48.91 Unspecified atrial fibrillation (principal); R79.89 Other specified abnormal findings of blood chemistry; I34.0 Nonrheumatic mitral (valve) insufficiency; D64.9 Anemia, unspecified; Z79.01 Long term (current) use of anticoagulants
CPT/HCPCS: 36415; 71045; 71275; 80053; 83690; 83735; 84443; 84484; 85025; 85379; 85610; 87150; 93005; 93307; 96365; 96366; 96375; 96376; 99285; A9270; G0378; J0282; Q9967